=== PATIENT | male | born 1965 | race Caucasian/White ===

== ENCOUNTER 2016-11-23 11:20 | Emergency (ER) | payer SELFPAY ==
[~2016-11-23] VITALS: Ht 177.8 cm; Wt 110.0 kg
[2016-11-23] MEDS ORDERED: SODIUM CHLORIDE 0.9% 1,000 ML IV ONE (11:31)
[2016-11-23] MEDS ORDERED: PLEASE ENTER ALLERGIES MC SCH ×2 (12:00)
[2016-11-23] MEDS ORDERED: SODIUM CHLORIDE FLUSH 10ML SYR IVF ONE (12:00)
[2016-11-23] MEDS ORDERED: SODIUM CHLORIDE 0.9% 1,000ML IVBOLUS ONE (12:00)
[2016-11-23] MEDS ORDERED: LORazepam 2 MG/ML, 1ML IVPush PRN (12:00)
[2016-11-23] MEDS ORDERED: ONDANSETRON 2MG/ML, 2ML IVPush ONE (12:00)
[2016-11-23] MEDS ORDERED: THIAMINE 100 MG in SODIUM CHLORIDE 0.9% 50 ML IVPB ONE (12:00)
[2016-11-23] MEDS ORDERED: LORazepam 2 MG/ML, 1ML ONE (12:02)
[2016-11-23 12:14] LABS: ASPARTATE AMINO TRANSFERASE 25 U/L (15-37); BLOOD UREA NITROGEN 17 mg/dL (7-18)
[2016-11-23 13:49] VITALS: BP 160/79
== END 2016-11-23 14:14 | disposition home or self-care (01) ==
LOC: ED 14:08
DX: F10.129 Alcohol abuse with intoxication, unspecified (principal); F41.9 Anxiety disorder, unspecified
CPT/HCPCS: 36415; 80053; 83690; 85025; 93005; 96361; 96365; 96375; 99285; J2060; J3411; J7030